=== PATIENT | female | born 2005 | race Caucasian/White ===

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

== ENCOUNTER 2023-03-19 21:51 | Emergency (ER) | payer BC, SELFPAY ==
[2023-03-19 22:38] VITALS: BP 112/75; PULSE 71; RESP 18; TEMP 36.7; O2SAT 99; BMI 27.4
--- NOTE | 2023-03-19 23:41 | ED.NURSE ---
pt requested update on wait time and stated she is going to go home - refusal of services signed by front office spec.
--- OUTSIDE RECORDS SUMMARY | 2023-03-19 23:42 | XMS_ITS | Continuity of Care Document ---
Author Name Unknown Organization [facility] Address [address] [place] [address] Phone Care Team Providers Care Assurance Associate Name Role Phone Lizabeth Hough MD Unavailable Unavailable Allergies, Adverse Reactions, Alerts Substance Reaction Status Criticality No Known Allergies Active No Inform ation Medications Medication Instructions Dosage Effective Dates (start - stop) Status Comments acyclovir 800 mg tablet take 1 tablet po q12h - Active To have on hand for outbreak, fill when Mom calls sodium fluoride 1 mg fluoride (2.2 mg) chewable tablet 1 mg po q day - Active Chewable Multi Vitamin tablet - Active FLUORITAB (unknown strength) Not Available - No Longer Active triamcinolone acetonide 0.1 % topical ointment apply by topical route 2 times every day a thin layer to the affected area(s) as needed for redness and itching 0.00 - No Longer Active triamcinolone acetonide 0.1 % Topical Ointment apply by topical route 2 times every day a thin layer to the affected area(s) as needed for redness and itching 0.00 - No Longer Active Procedures Procedure Date Flu Mist TDAP VACCINE >7 IM MENINGOCOCCAL VACCINE, IM Gardasil-9 PREV VISIT, EST, AGE 5-11 PREV VISIT, EST, AGE 5-11 Flu Mist As per patient privacy policy some of the clinical information may not be visible. Advance Directives Directive Yes / No Effective Date File Name No Information Encounters Encounter Description Practice Location Reason(s) For Visit Diagnoses Date Provider Providers Copied on Encounter PREV VISIT, EST, AGE 5-11 [facility], [address], [place], [id number] , tel: [phone] [facility] Well child (chief complaint) 9 yr well check (chief complaint) Encntr for routine child health exam w/o abnormal findingsSciatic nerve pain, rightRecurrent nongenital herpes simplex virus (HSV) infectionIntrinsic atopic dermatitisFamilial hypercholesterolem ia [address] Gianluc[address] Barone. [address], [place], [address], [place]. tel:[phone] Referring Provider: Lizabeth Hough W, [address], [place], [address]. tel:[phone] PREV VISIT, EST, AGE 5-11 [facility], [address], [place], [id number] , [place] tel: [phone] [facility] Contact dermatitis and other eczema, unspecified causeAsthma 3 Richie David. [address], [place], [address], [place]. tel:[phone] Referring Provider: Joann Conklin, [address], [place], [address]. tel:[phone] Family History Family Member Type Diagnosis Age At Onset No Information Immunizations Vaccine Date Status Comments Influenza, live, intranasal, quadrivalent Flumist Quad 2804-3260 administered Source: New Immuniza tion Record HPV (9-valent) administered Source: New I mmunization Record meningococcal MCV4P administered Source: New Immunization Record Tdap administered Source: New Imm unization Record Influenza virus vaccine, intranasal administered Source: New Immuniza tion Record varicella virus vaccine administered Sour ce: Source Unspecified measles, mumps and rubella virus vaccine administered Source: Source Unspe cified hepatitis A vaccine, pediatric/adolescent dosage, 2 dose schedule administered Source: Source Unspe cified poliovirus vaccine, inactivated administe red Source: Source Unspecified Hep A (ped/adol, 2 dose) administered Wendy rce: Source Unspecified diphtheria, tetanus toxoids and acellular pertussis vaccine administered Source: Sour ce Unspecified diphtheria, tetanus toxoids and acellular pertussis vaccine administered Source: Sour ce Unspecified Varicella administered Source: Source Unspecified poliovirus vaccine, inactivated administe red Source: Source Unspecified pneumococcal conjugate vacci ne, 13 valent administered Source: Source Unspe cified MMR administered Source: Source Unspecified Haemophilus influenzae type b vaccine, conjugate unspecified formulation administered Source: Source Unspe cified hepatitis B vaccine, pediatr ic or pediatric/adolescent dosage administered Source: S ource Unspecified pneumococcal conjugate vacci ne, 13 valent administered Source: Source Unspe cified diphtheria, tetanus toxoids and acellular pertussis vaccine administered Source: Sour ce Unspecified poliovirus vaccine, inactivated administe red Source: Source Unspecified pneumococcal conjugate vacci ne, 13 valent administered Source: Source Unspe cified Haemophilus influenzae type b vaccine, conjugate unspecified formulation administered Source: Source Unspe cified hepatitis B vaccine, pediatr ic or pediatric/adolescent dosage administered Source: S ource Unspecified diphtheria, tetanus toxoids and acellular pertussis vaccine administered Source: Sour ce Unspecified Polio, Inactive administered Source: Sour ce Unspecified Pneumococcal, PCV-13 administered Source: Source Unspecified Hib (PRP-T) administered Source: Source Unspecified Hep B (ped/adol, 3 dose) administered Wendy rce: Source Unspecified DTaP, 5 pertussis antigens administered S ource: Source Unspecified Payers Payer name Insurance type Covered constitution party ID Authoriza tirolan(s) [facility]ly [facility] [id number] [facility] [id number] [facility] [id number] Social History Type Description Quantity Date Captured Comments Alcohol Use Details Unknown Caffeine Use Details Unknown Tobacco Use Status No Information Smoking Status No Information Sex Female Vital Signs Date / Time: Height Weight BMI Pulse Rate Blood Pressure Temperature Respiratory Rate Body Surface Area Head Circumference Head Circ. Percentile Wt./[place]. Percentile BMI percentile Pulse Ox Inhaled Ox 9:38 AM 59.06 in 39.825 kg (87.80 lbs) 17.7 0 kg/m eter (2) 96/54 mm[Hg] 48 10:40 AM 74 /min 90/50 mm[Hg] 11:19 AM 84/52 mm[Hg] Chief Complaint And Reason For Visit From encounter dated '04/27/2015 09:30'. Well child (chief complaint) 9 yr well check (chief complaint) Reason For Referral Reason For Referral No Information Plan Of Treatment Date Type Action Status Future Order: Lab Order Lipid Pa lorraine ([id number]), Ordered on: Ordered History Of Present Illness Encounter Date Complaint History Of Prese nt Illness Well child 9 yr well check Functional Status Date Functional Assessmen t No Information Medications Administered Medication Instructions Dosage Effective Dates (start - stop) Status Comments FLUORITAB (unknown strength) Not Available - No Longer Active Instructions Date Instruction Additional Infor mation No Information Assessments Type Assessment Date assessment Encntr for routine child health exam w/o abnormal findings assessment Sciatic nerve pain, right assessment Recurrent nongenital herpes simp lillian virus (HSV) infection assessment Intrinsic atopic dermatitis assessment Familial hypercholesterolemia De Patient Care Teams Name Effective Dates (start - stop) Status Members No Information
== END 2023-03-19 23:42 | disposition left against medical advice (07) ==
DX: Z53.21 Procedure and treatment not carried out due to patient leaving prior to being seen by health care provider (principal)

== ENCOUNTER 2023-09-30 14:21 | Emergency (ER) | payer BC, SELFPAY ==
[2023-09-30 14:31] VITALS: BP 127/77; PULSE 90; RESP 20; TEMP 37; O2SAT 98; BMI 30.7
--- NOTE | 2023-09-30 14:44 | ED_ITS ---
HPI - General Adult General Time Seen by Provider: 14:44 Date Seen: 09/30/23 Chief complaint: Cough Stated complaint: Coughing blood 6 days Time Seen by Provider: 09/30/23 14:24 Source: patient and RN notes reviewed Mode of arrival: ambulatory Limitations: no limitations History of Present Illness HPI narrative: This 18-year-old female is coming in with some sputum production with a little blood. She had called [facility] as she found her insurance could cover her there. They advised her to be seen in the ED. She is a [place] student. She admits since this fall when she came to school she has had some respiratory issues. She believes she started with a cold this fall but has continued to have coughing. She will have productive cough of whitish to yellowish or greenish phlegm. She notes she coughs up phlegm in the morning. She does note that sometimes during physical activity that she will have to stop. She states she has a low blood pressure and has a history of fainting. She has noted some increased nasal congestion over the last week. She does not carry history of asthma. She states she had some abnormality on a clinic type breathing test. [facility] go [facility] last week and they did give her an albuterol nebulizer. She did get treated with antibiotics when she was home at [facility], does not remember what the antibiotic was. She does not really feel like this change things. She last had a chest x-ray when she was home at [facility]. She lives in [facility]. No current fevers chills. She erickson s not feel like she has new cold symptoms now. She does show me pictures in there is min newt blood streaking in some yellow-greenish mucus that she coughed up. Related Data Home Medications Medication Instructions Recorded Confirmed sertraline 50 mg tablet (Zoloft) 50 mg PO DAILY 07/12/22 03/19/23 propranolol 10 mg tablet 10 - 20 mg PO DAILY PRN panic 03/19/23 03/19/23 attack hydroxyzine HCl 10 mg tablet 10 - 20 mg PO DAILY PRN anxiety 09/30/23 09/30/23 Previous Rx's Medication Instructions Recorded cetirizine 10 mg capsule (Zyrtec) 10 mg PO DAILY #30 caps 09/30/23 flunisolide 25 mcg (0.025 %) nasal 2 spray intranasal BID #25 mL 09/30/23 spray Allergies Allergy/AdvReac Type Severity Reaction Status Date / Time No Known Drug Allergies Allergy Verified 07/12/22 17:08 Review of Systems Status of ROS: Reports: 6 or more systems reviewed and unremarkable except as noted in History and below [facility] Social History Smoking Status: Never smoker Do you use any of these nicotine containing products: None Second hand tobacco smoke exposure: No How often do you have a drink containing alcohol: never How often do you have six or more drinks on one occasion: Never AUDIT-C Alcohol total score: 0 Non-prescribed substance use: denies use service: No Exam Const: Vital Signs, click to edit/add: Vital Signs - 24 hr 09/30/23 14:31 Temperature 98.6 F Pulse Rate [Pulse Oximeter] 90 Respiratory Rate 20 Blood Pressure [Ri ght Upper Arm] 127/77 Pulse Oximetry 98 Oxygen Delivery Me thod Room Air Patient is alert, interactive, no apparent distress. Sclera clear, conjugate gaze, pupils look equal and round. TMs with normal landmarks, normal light reflects, no abnormality noted. Oropharynx no mucosa, no exudates or erythema, no significant tonsillar enlargement. Anterior nares looks like there might be some a septal deviation to the right but mucosa overall looks normal. Neck is supple, no adenopathy. Lungs are clear, good air entry, no wheezing or crackles. CV regular rate and rhythm, no murmur. Documenting provider has reviewed patient's vital signs: yes Course Course ED Course: Reviewed with patient 3 most common causes of chronic cough in the [place] are asthma, reflux disease and postnasal drainage. She certainly may have history that suggests potential airway disease. I do suspect sinus drainage. With her concern of some hemoptysis (pictures show minute blood streaking), have recommended a two view chest x-ray just to ensure no acute pathology. I will do basic labs. This does not sound like tylor hemoptysis, doubtful of such things like Mendoza's granulomatosis but if ongoing, may need to see pulmonology. Discussed with her that we could do sinus CT imaging, chest CT imaging for extensive evaluation but believe that this is radiation that is significant and does not seem emergently necessary at this time. Will do some screening baseline labs. Doubt acute infection. This certainly could be sinus drainage/chronic sinus disease, underlying airways disease. Patient has no history of any environmental allergens but this could also be a possibility. We will do a two view chest x-ray today. Reevaluation(s) Time of Reevaluation #1: 16:38 Reevaluation #1: Reviewed with patient normal chest x-ray and reassuring labs. Her inflammatory markers are negative. We are going to trial Jonnyrtelibby in nasal steroid. Did review pointing the nasal steroid out towards the cheek and not to the septum. Do not believe she needs any antibiotics, however, if worsening needs to seek re-evaluation. Vital Signs Vital signs: Initial Vital Signs Temperature 98.6 F 09/30/23 14:31 Temperature Source Temporal Artery Scan 09/30/23 14:31 Pulse Rate 90 09/30/23 14:31 Respiratory Rate 20 09/30/23 14:31 Blood Pressure 127/77 09/30/23 14:31 Blood Pressure Mean 93 09/30/23 14:31 Blood Pressure Position Sitting 09/30/23 14:31 Pulse Oximetry 98 09/30/23 14:31 Oxygen Delivery Method Room Air 09/30/23 14:31 Vital Signs Temperature 98.6 F 09/30/23 14:31 Pulse Rate 90 09/30/23 14:31 Respiratory Rate 20 09/30/23 14:31 Blood Pressure 127/77 09/30/23 14:31 Pulse Oximetry 98 09/30/23 14:31 Oxygen Delivery Method Room Air 09/30/23 14:31 Temperature 98.6 F 09/30/23 14:31 Pulse Rate 90 09/30/23 14:31 Respiratory Rate 20 09/30/23 14:31 Blood Pressure 127/77 09/30/23 14:31 Pulse Oximetry 98 09/30/23 14:31 Oxygen Delivery Method Room Air 09/30/23 14:31 Medical Decision Making Lab Data Lab results reviewed: Yes I reviewed the patient's lab results Labs: Lab Results 09/30/23 Range/Units 15:17 WBC 11.74 H (4.50-11.00) K/uL RBC 4.77 (4.00-5.20) m/uL Hgb 14.1 (12.0-16.0) gm/dL Hct 41.9 (33.0-51.0) % MCV 88 (80-100) fL MCH 30 (26-34) pg MCHC 34 (32-36) gm/dL RDW Coeff of Ananya 11.7 (11.5-15.5) % Plt Count 312 (140-440) K/uL Neut % (Auto) 66.6 (42.0-72.0) % Lymph % (Auto) 18.6 L (20-44) % Sioux % (Auto) 8.8 (0.0-11.0) % Eos % (Auto) 4.9 (0.0-7.0) % Baso % (Auto) 0.3 (0.0-3.0) % Neut # (Auto) 7.80 H (1.7-7.0) K/uL Lymph # (Auto) 2.20 (0.90-2.90) K/uL Sioux # (Auto) 1.00 H (0.00-0.90) K/UL Eos # (Auto) 0.60 H (0.00-0.50) K/uL Baso # (Auto) 0.00 (0.00-0.30) K/uL Abs Immat Gran (auto) 0.10 (0.00-0.30) K/uL Imm/Tot Granulo (auto) 0.8 % ESR 14 (2-20) mm/hr Sodium 138 (135-149) mmol/L Potassium 3.9 (3.6-5.1) mmol/L Chloride 106 (96-114) mmol/L Carbon Dioxide 26 (20-32) mmol/L Anion Gap 6 L (7-15) mEq/L BUN 12 (5-24) mg/dL Creatinine 0.6 (0.5-1.5) mg/dL Estimated Creat Clear 140.01 Estimated GFR 132 ml/min Glucose 90 (60-115) mg/dL Calcium 9.4 (8.4-10.6) mg/dL C-Reactive Protein 1.2 H (0.5-1.0) mg/dL Imaging Data Chest x-ray: Attestation: I have reviewed the pertinent imaging results. Radiologist's impression: Patient: ANDREW GIL Facility:?[facility] Patient ID:?[id number] Site Patient ID:?[id number]. Site :?[id number] Study:?XRay-Chest 2 VIEW-09/30/2023 3:32:19 PM Ordering Physician:HANNAH Final Report: Indication: Chronic coughing, hemoptysis Technique: Chest 2 views Comparison: None Findings/Impression: Cardiovascular and mediastinum: Heart size and vasculature are normal in caliber and appearance. Mediastinum is within normal limits. Lungs and pleural spaces: Lungs are clear. No sign of infiltrate or mass. No sign of pleural effusion. No pneumothorax. Bones and soft tissues: No significant findings. Dictated by Roger Guerrero MD @ 09/30/2023 3:40:16 PM (Electronic Signature) Discharge Plan Discharge Clinical Impression: Chronic cough, Nasal congestion Patient Disposition: Home, Self-Care Condition: Stable Additional Instructions: Recommend nasal steroid daily and trying daily Zyrtec. See if these help minimize your symptoms. I do think that you should see ENT at some point with your issues. Would also consider doing formal pulmonary function testing if ongoing symptoms, especially is the trial of medications doesn't help. If you develop fever, worsening cough, difficulty breathing/shortness of breath or are coughing up tylor blood, do need to seek re-evaluation. Activity Level: Activity as Tolerated Prescriptions: New flunisolide 25 mcg (0.025 %) spray,non-aerosol 2 spray intranasal BID Qty: 25 0RF Zyrtec 10 mg capsule 10 mg PO DAILY Qty: 30 0RF No Action sertraline [Zoloft] 50 mg tablet 50 mg PO DAILY propranolol 10 mg tablet 10 - 20 mg PO DAILY PRN (Reason: panic attack) hydroxyzine HCl 10 mg tablet 10 - 20 mg PO DAILY PRN (Reason: anxiety) Follow Up/Referrals: Provider,Not a Local [Primary Care Provider] - Stand Alone Forms: [employer] Info Instructions
--- NOTE | 2023-09-30 15:00 | XR_ITS ---
Patient: ANDREW GIL Facility:?[facility] Patient ID:?[id number] Site Patient ID:?[id number]. Site :?[id number] Study:?XRay-Chest 2 VIEW-09/30/2023 3:32:19 PM Ordering Physician:HANNAH Final Report: Indication: Chronic coughing, hemoptysis Technique: Chest 2 views Comparison: None Findings/Impression: Cardiovascular and mediastinum: Heart size and vasculature are normal in caliber and appearance. Mediastinum is within normal limits. Lungs and pleural spaces: Lungs are clear. No sign of infiltrate or mass. No sign of pleural effusion. No pneumothorax. Bones and soft tissues: No significant findings. Dictated by Roger Guerrero MD @ 09/30/2023 3:40:16 PM Signed by:?Roger Guerrero MD @09/30/2023 3:40:16 PM (Electronic Signature)
--- OUTSIDE RECORDS SUMMARY | 2023-09-30 15:18 | XMS_ITS | Clinical Summary ---
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 01/23/2023 Active FLUoxetine (PROZAC) 10 mg capsule Take 10 mg by mouth. 12/12/2022 Active Active Problems No known active problems Encounters Date Type Department Care Team Description 09/30/2023 Nurse Triage [facility] [address] [place] [address] Pcp, No Cough (Coughing up blood after using Albuterol inhaler) 09/30/[address] [facility] [place] [address] [place] [id number] Allen So, DO Cough from Last 3 Months Immunizations Name Administration Dates Next Due DTaP 03/15/2008, 5,04/23/2004,02/20,2003 HIB PRP-T (ActHIB,Hiberix) 11/06/2004,02/21/2004 ,2003 HIB-HepB (Comvax) 11/06/2004,02/21/2004,12/06/19 04 HPV 9 (Gardasil 9) 03/24/2016,09/05/2015, 015 Hepatitis A (Peds) 03/16/2009,03/15/2008 Hepatitis B (Peds) 11/06/2004,02/21/2004, 004 Inactivated Polio Vaccine 03/15/2008,,02/21/2004,12/05 Influenza Virus, Unspecified 04/10/2020, 03/14/2020,01/28/2019,04/27,03/22/2013,03/18/2011,03/16/2009 ,05/01/2008,03/15/2008,04/23/2005 Influenza, IIV4 03/06/2022 MMR, Unspecified 03/16/2009,11/06/2004 Meningococcal Vaccine (Menactra) 04/27/2015 Pneumococcal conj 13-Valent (Prevnar 13) 01/23/2018 Pneumococcal conj 7-Valent (Prevnar 7) 0 11/06/2004,04/23/2004,02/21/2004,12/05 Tdap, Unspecified 04/27/2015 Varicella Vaccine 03/16/2009,11/06/2004 Social History Tobacco Use Types Packs/Day Years Used Date Smoking Tobacco: Never Smokeless Tobacco: Never Tobacco Cessation:Counseling Given: Yes Alcohol Use Standard Drinks/Week Comments Yes 1 (1 standard drink = 0.6 oz pur e alcohol) PHQ-2 Answer Date Recorded PHQ-2 TOTAL SCORE 5 09/10/2022 Social Connections Answer Date Recorded Frequency of Communication with Friends and Fami ly 4 03/22/2023 Financial Resource Strain Answer Date R ecorded Difficulty of Paying Living Expenses 2 03/22/2023 Difficulty of Paying Living Expenses 1 03/22/2023 Food Insecurity Answer Date Recorded Worried About Running Out of Food in the Last Ye ar 2 03/22/2023 Transportation Needs Answer Date Record ed Lack of Transportation (Medical) 2 03/22/2023 Housing Stability Answer Date Recorded Unable to Pay for Housing in the Last Year 1 03/22/2023 Sex and Gender Information Value Date Recorded Sex Assigned at Not on file Gender Identity Not on file Sexual Orientation Not on file Obstetrics History Last Filed Vital Signs Vital Sign Reading Time Taken Comments Blood Pressure 105/66 03/23/2023 8:03 AM CDT Pulse 65 03/23/2023 8:03 AM CDT Temperature 37 ??C (98.6 ??F) 03/23/2023 8:03 AM CDT Respiratory Rate - - Oxygen Saturation 97% 03/23/2023 8:03 AM CDT Inhaled Oxygen Concentration - - Weight 79.8 kg (176 lb) 03/23/2023 8:03 AM CDT Height 169.5 cm (5' 6.73) 06/11/2022 1:44 PM CS T Body Mass Index - - Plan of Treatment Health Maintenance Due Date Last Done Comments Well Child Check for age 3-20 08/27/2006 HIV for age 15-65 09/26/2018 Chlamydia for age 16-24 2019 Hepatitis C screening for age 18-79 09/26/2021 COVID-19 vaccine series ( season) 2023 03/06/2022, 10/01/2020, 09/09/2020 BMI (ht and wt on same day) for age 18+ 06/11/2023 06/11/2022 Depression screening for age 12+ 09/11/2023 09/10/2022, 09/10/2022, 09/10/2022, Additional history exists Influenza for age 9-49 01/24/2024 , 04/10/2020, 03/14/2020, Additional history exists Tetanus booster 04/27/2025 04/27/2015 Meningococcal series for age 11-21 Aged Out 04/27/2015 No longer eligible based on patient's age to complete this topic Tdap Completed 04/27/2015 HPV series for age 9-26 Completed 03/24/20 16, 09/05/2015, 04/27/2015 Pneumococcal series for age 6-64 Aged Out 01/23/2018, 11/06/2004, 04/23/2004, Additional history exists No longer eligible based on patient's age to complete this topic Care Teams Bag Shop Worker Relationship Specialty Start Date End Date Pcp, No . PCP - General 06/11/22
--- OUTSIDE RECORDS SUMMARY | 2023-09-30 15:18 | XMS_ITS | Referral Summary ---
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 Name Role Phone Unavailable Primary Care Provider Unavailabl e Allergies No known active allergies Medications No known medications Immunizations Name Administration Dates Next Due COVID-19 Pfizer (12yr+) - Original Formulation 0 10/01/2020,09/09/2020 Social History Tobacco Use Types Packs/Day Years Used Date Smoking Tobacco: Never Alcohol Use Standard Drinks/Week Comments Not Asked 0 (1 standard drink = 0.6 oz pur e alcohol) Sex and Gender Information Value Date Recorded Sex Assigned at Not on file Gender Identity Not on file Sexual Orientation Not on file Last Filed Vital Signs Vital Sign Reading Time Taken Comments Blood Pressure 87/54 05/25/2012 8:02 PM PST Pulse 112 05/25/2012 8:02 PM PST Temperature 38.2 ??C (100.7 ??F) 05/25/2012 8:[address] Respiratory Rate 18 05/25/2012 8:02 PM PST Oxygen Saturation 98% 05/25/2012 8:02 PM PST Inhaled Oxygen Concentration - - Weight 28.7 kg (63 lb 4.4 oz) 05/25/2012 5:05 PM PST Height - - Body Mass Index - - Plan of Treatment Not on file
--- OUTSIDE RECORDS SUMMARY | 2023-09-30 15:18 | XMS_ITS | Continuity of Care Document ---
Author Name Unknown Organization [facility] Address [address] [place] [address] Phone Care Team Providers Care Commercial Intern Name Role Phone Lizabeth Hough MD Unavailable [...] on Encounter PREV VISIT, EST, AGE 5-11 [facility], [address] [place], [place], [id number] , tel: [phone] [facility] Well child (chief complaint) 9 yr well check (chief complaint) Encntr for routine child health exam w/o abnormal findingsSciatic nerve pain, rightRecurrent nongenital herpes simplex virus (HSV) infectionIntrinsic atopic dermatitisFamilial hypercholesterolem ia [address] Gianluc[address] Barone. [address], [place], [address], [place]. tel:[phone] Referring Provider: Lizabeth Hough W, [address], [place], [address]. tel:[phone] PREV VISIT, EST, AGE 5-11 [facility], [address] [place], [place], [id number] , [place] tel: [phone] [facility] Contact dermatitis and other eczema, unspecified causeAsthma 3 Richie David. [address], [place], [address], [place]. tel:[phone] Referring Provider: Joann Conklin, [address], [place], [address]. tel:[phone] Family History Family Member Type Diagnosis Age At Onset No Information Immunizations Vaccine Date Status Comments Influenza, live, intranasal, quadrivalent Flumist Quad [id number] administered Source: New Immuniza tion Record HPV [...] Unspecified Payers Payer name Insurance type Covered republican ID Authoriza tirolan(s) [facility] [id number] [facility] [id number] [facility] [id number] Social History Type Description Quantity Date Captured [...] Future Order: Lab Order Lipid Pa lorraine ([id number]), Ordered on: Ordered History Of Present Illness [...]
--- OUTSIDE RECORDS SUMMARY | 2023-09-30 15:18 | XMS_ITS | Clinical Summary ---
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 Operator Name Role Phone Unavailable Primary Care Provider [...] Health Maintenance Due Date Last Done Comments Hepatitis C Ab Screening 2003 Syphilis (RPR) Screening 2003 Depression Screening (PHQ/EPDS) 2015 HIV Screening 09/26/2018 HPV Vaccine (1 - 3-dose series) 09/26/2018 GC/Chlamydia Screening 2019 Lipid Screening 09/26/2020 Hepatitis B Vaccine (1 of 3 - 19+ 3-dose series) 09/26/2022 COVID-19 Vaccine (3 - 2022-24 season) 2023 10/01/2020, 09/09/2020 Influenza Vaccine (Season Ended) 2024 04/10/2020, 04/27/2015, 03/22/2013, Additional history exists Tetanus Vaccine 04/27/2025 04/27/2015 Zoster Vaccine (1 of 2) 09/26/2053 Hepatitis A Vaccine Aged Out No longe r eligible based on patient's age to complete this topic Hib Vaccine Aged Out No longer eligi ble based on patient's age to complete this topic Meningococcal ACWY Vaccine Aged Out N o longer eligible based on patient's age to complete this topic Pneumo Vaccine 0-64 yrs Aged Out No l onger eligible based on patient's age to complete this topic
[2023-09-30 15:29] LABS: Basophils Percent Auto 0.3 % (0.0-3.0); Eosinophils Percent Auto 4.9 % (0.0-7.0); Hematocrit 41.9 % (33.0-51.0); Hemoglobin* 14.1 gm/dL (12.0-16.0); Immature Granulocytes Pct Auto 0.8 %; Lymphocytes Percent Auto 18.6 % (20-44); Mean Corpuscular HGB Conc 34 gm/dL (32-36); Mean Corpuscular Hemoglobin 30 pg (26-34); Mean Corpuscular Volume 88 fL (80-100); Monocytes Percent Auto 8.8 % (0.0-11.0); Neutrophils Percent Auto 66.6 % (42.0-72.0); Platelet Count* 312 K/uL (140-440); RDW Coefficient of Variation % 11.7 % (11.5-15.5); Red Blood Count 4.77 m/uL (4.00-5.20); White Blood Count* 11.74 K/uL (4.50-11.00)
[2023-09-30 15:36] LABS: Slide Review Reflex No
[2023-09-30 15:40] LABS: Potassium* 3.9 mmol/L (3.6-5.1); Sodium* 138 mmol/L (135-149)
[2023-09-30 15:42] LABS: Chloride* 106 mmol/L (96-114); Creatinine* 0.6 mg/dL (0.5-1.5); Est. Creatinine Clearance* 140.01; Estimated Glomerular Filt Rate 132 ml/min
[2023-09-30 15:43] LABS: Anion Gap 6 mEq/L (7-15); Blood Urea Nitrogen* 12 mg/dL (5-24); Calcium* 9.4 mg/dL (8.4-10.6); Carbon Dioxide* 26 mmol/L (20-32); Glucose* 90 mg/dL (60-115)
[2023-09-30 15:52] LABS: C Reactive Protein* 1.2 mg/dL (0.5-1.0)
[2023-09-30 16:15] LABS: Erythrocyte SedimentationRate* 14 mm/hr (2-20)
[2023-09-30 16:36] VITALS: BP 101/71; PULSE 78; RESP 18; TEMP 36.6; O2SAT 98
== END 2023-09-30 16:45 | disposition home or self-care (01) ==
PROVIDERS: Emergency Provider Family Medicine
DX: R05.3 Chronic cough (principal); R09.81 Nasal congestion
CPT/HCPCS: 36415; 71046; 80048; 85025; 85651; 86140; 99283; 99284